=== PATIENT | male | born 1995 | race Caucasian/White ===

== ENCOUNTER 2016-09-08 08:22 | Emergency (ER) | payer OTHER ==
[2016-09-08 09:18] LABS: RED BLOOD COUNT 5.11 M/UL (4.20-5.50); WHITE BLOOD COUNT 5.9 K/UL (4.5-11.0)
[2016-09-08 09:35] LABS: BUN/CREATININE RATIO 22 (0-10)
== END 2016-09-08 10:30 | disposition home or self-care (01) ==
LOC: ER1 08:22
PROVIDERS: Family Medicine
DX: K59.00 Constipation, unspecified (principal)
CPT/HCPCS: 36415; 80053; 81001; 83690; 85025; 99283